=== PATIENT | female | born 1955 | race Caucasian/White ===

== ENCOUNTER 2018-08-01 02:01 | Emergency (ER) | payer BC ==
[2018-08-01] MEDS ORDERED: Sodium Chloride 0.45% 1,000 ML IV ONE (02:34)
[2018-08-01 02:43] LABS: % BASOPHILS 0.3 % (0.0-2.0); % EOSINOPHILS 0.9 % (0.0-5.0); % LYMPHOCYTES 13.8 % (20.0-50.0); % MONOCYTES 5.9 % (2.0-10.0); % NEUTROPHILS 79.1 % (40.0-80.0); EOSINOPHILE ABSOLUTE 0.1 Th/cmm (0.1-0.4); HEMATOCRIT 41.5 % (41.0-60); HEMOGLOBIN 13.5 gm/dL (12-16); LYMPHOCYTE ABSOLUTE 1.3 Th/cmm (1.5-3.0); MEAN CELL VOLUME 89.3 fl (81-100); MEAN CORPUSCULAR HEMOGLOBIN 29.1 pg (27.0-31.0); MEAN CORPUSCULAR HGB CONC 32.6 pg (28.0-36.0); MEAN PLATELET VOLUME 8.5 fl; MONOCYTE ABSOLUTE 0.6 Th/cmm (0.3-1.0); NEUTROPHILE ABSOLUTE 7.5 Th/cmm (1.8-8.0); PLATELET COUNT 274 Th/cmm (150-400); RED BLOOD COUNT 4.65 Mil/cmm (3.80-5.10); RED CELL DISTRIBUTION WIDTH 12.2 % (11.5-20.0); WHITE BLOOD COUNT 9.5 Th/cmm (4.8-10.8)
[2018-08-01 02:58] LABS: INR 0.88 (0.5-1.4); PROTHROMBIN TIME (TEST) 9.3 SECONDS (9.5-11.5)
[2018-08-01 03:00] LABS: URINE SOURCE CLEAN C
[2018-08-01 03:03] LABS: URINE BILIRUBIN NEGATIVE (NEGATIVE); URINE BLOOD TRACE (NEGATIVE); URINE GLUCOSE (UA) NEGATIVE (NEGATIVE); URINE KETONE NEGATIVE (NEGATIVE); URINE LEUKOCYTE ESTERASE NEGATIVE (NEGATIVE); URINE MICROSCOPIC INDICATED? YES; URINE NITRATE NEGATIVE (NEGATIVE); URINE PROTEIN 30 mg/dL (NEGATIVE); URINE UROBILINOGEN 0.2 E.U./dL (0.2 - 1.0)
[2018-08-01 03:04] LABS: ALB/GLOB RATIO 1.4 (1.0-1.8); ALBUMIN 4.4 gm/dL (3.7-5.3); ALKALINE PHOSPHATASE 83 U/L (34-104); ANION GAP 11.9 (7.0-16.0); BILIRUBIN,TOTAL 0.6 mg/dL (0.3-1.0); BUN - UREA NITROGEN 7 mg/dL (7-25); CALCIUM SERUM 8.9 mg/dL (8.6-10.3); CARBON DIOXIDE 26.1 mEq/L (21.0-31.0); CHLORIDE 96 mEq/L (98-107); CREATININE - SERUM 0.7 mg/dL (0.6-1.2); GFR AFRICAN-AMERICAN > 60.0 ml/min (>90); GFR NON AFRICAN-AMERICAN > 60.0 ml/min; GLUCOSE 130 mg/dL (70-105); LIPASE 9 U/L (11-82); SGOT 16 U/L (13-39); SGPT/ALT 14 U/L (7-52); SODIUM SERUM 131 mEq/L (136-145); TOTAL PROTEIN,SERUM 7.5 gm/dL (6.0-8.3)
--- NOTE | 2018-08-01 03:06 | ED Physician Chart ---
ED Chief Complaint/HPI - Patient Information Date Seen:: 08/01/18 Time Seen:: 02:20 Chief Complaint:: right flank pain History of Present Illness:: this is a 63 yo female with the sudden onset of right sided abdominal pain associated with nausea and vomiting over the last few days. Allergies:: Allergies Allergy/AdvReac Type Severity Reaction Status Date / Time Iodine and Iodide Containing Allergy Verified 08/01/18 02:25 Produc Vitals:: Vital Signs - 8 hr 08/01/18 02:12 Temp 97.8 F HR 77 RR 16 BP 161/97 O2 Sat % 97 Historian:: Patient Review:: Nurse's Note Reviewed ED Review of Systems - Review of Systems General/Constitutional: No fever, No chills, No weight loss, No weakness, No diaphoresis, No edema, No loss of appetite Skin: No skin lesions, No rash, No bruising Head: No headache, No light-headedness Eyes: No loss of vision, No pain, No diplopia ENT: No earache, No nasal drainage, No sore throat, No tinnitus Neck: No neck pain, No swelling, No thyromegaly, No stiffness, No mass noted Cardio Vascular: No chest pain, No palpitations, No PND, No orthopnea, No edema Pulmonary: No SOB, No cough, No sputum, No wheezing GI: Nausea, Vomiting, No diarrhea, Pain, No melena, No hematochezia, No constipation, No hematemesis G/U: No dysuria, No frequency, No hematuria Musculoskeletal: No bone or joint pain, No back pain, No muscle pain Endocrine: No polyuria, No polydipsia Psychiatric: No prior psych history, No depression, No anxiety, No suicidal ideation Hematopoietic: No bruising, No lymphadenopathy Allergic/Immuno: No urticaria, No angioedema Neurological: No syncope, No focal symptoms, No weakness, No paresthesia, No headache, No seizure, No dizziness, No confusion, No vertigo ED Past Medical History - Past Medical History Obtainable: Yes Past Medical History: HTN, Dyslipidemia Family History: None Social History: Non Smoker, No Alcohol, No Drug Use Surgical History: Hysterectomy, other (tonsils, right ankle) Psychiatricy History: None Family Medical History - Family Member Mother History Unknown: Yes ED Physical Exam - Physical Examination General/Constitutional: Awake, Well-developed, well-nourished, Alert, No distress, GCS 15, Non-toxic appearing, Ambulatory Head: Atraumatic Eyes: Lids, conjuctiva normal, PERRL, EOMI Skin: Nl inspection, No rash, No skin lesions, No ecchymosis, Well hydrated, No lymphadenopathy ENMT: External ears, nose nl, Nasal exam nl, Lips, teeth, gums nl Neck: Nontender, Full ROM w/o pain, No JVD, No nuchal rigidity, No bruit, No mass, No stridor Respiratory: Nl effort/Exclusion, Clear to Auscultation, No Wheeze/Rhonchi/Rales Cardio Vascular: RRR, No murmur, gallop, rubs, NL S1 S2 GI: No tenderness/rebounding/guarding (right upper liver area and abdomenal tenderness ), No organomegaly, No hernia, Normal BS's, Nondistended, No mass/ bruits, No McBurney tenderness : No CVA tenderness Extremities: No tenderness or effusion, Full ROM, normal strength in all extremities, No edema, Normal digits & nails Neuro/Psych: Alert/oriented, DTR's symmetric, Normal sensory exam, Normal motor strength, Judgement/insight normal, Mood normal, Normal gait, No focal deficits Misc: Normal back, No paraspinal tenderness ED Labs/Radiology/EKG Results - Lab Results Results: Laboratory Tests 08/01/18 02:30 WBC 9.5 RBC 4.65 Hgb 13.5 Hct 41.5 MCV 89.3 MCH 29.1 MCHC Differential 32.6 RDW 12.2 Plt Count 274 MPV 8.5 Neutrophils % 79.1 Lymphocytes % 13.8 L Monocytes % 5.9 Eosinophils % 0.9 Basophils % 0.3 - Radiology Results Results: ct scan = liver disease and renal stone ED Assessment - Assessment General Assessment: hepatic disease renal stone ED Septic Shock - . Is Septic Shock (SBP<90, OR Lactate>4 mmol\L) present?: No - <6hrs of presentation: Vital Signs: Vital Signs - 8 hr 08/01/18 02:12 Temp 97.8 F HR 77 RR 16 BP 161/97 O2 Sat % 97 ED Reassessment (Disposition) - Reassessment Reassessment Condition:: Improved - Diagnosis Diagnosis:: hepatic lesion renal stone - Aftercare/Follow up Instructions Aftercare/Follow-Up Instructions:: Counseled pt regarding lab results/diagnosis & need follow up, Refer to Discharge Instructions, Counseled pt & family regarding lab results/diagnosis & need follow up Notes:: she will go to her pmd with a copy of her labs on thursday. she was told to get [facility] if the pain returns or get worse mayr. Medication Prescribed:: [id number]-jeffery., gabapentin - Patient Disposition Discharge/Transfer:: Home Condition at Disposition:: Improved
[2018-08-01] MEDS ORDERED: Potassium Chloride Elixir 20 mEq /15 mL UDC PO ONE (03:08)
[2018-08-01 03:13] LABS: URINE CLARITY HAZY (CLEAR); URINE COLOR YELLOW
[2018-08-01] MEDS ORDERED: Potassium Chloride Elixir 20 mEq /15 mL UDC ONE (03:13)
[2018-08-01 03:14] LABS: URINE AMORPHOUS SEDIMENT MODERATE URATES (NONE SEEN); URINE BACTERIA MANY /hpf (NONE SEEN); URINE EPITHELIAL CELLS MODERATE /lpf (FEW); URINE RBC NONE SEEN /hpf (0-5)
--- NOTE | 2018-08-01 09:11 | Diagnostic Imaging Report ---
Exam: CT examination of the abdomen pelvis HISTORY: Right abdominal pain Total DLP equals 546 CTDI equals 11.4 Findings: Multiple contiguous thin section of the abdomen pelvis obtained from lower thorax to pubic symphysis without the administration of oral or intravenous contrast material, no prior studies available comparison. The study demonstrates mild right basal peribronchial infiltrate and pleural thickening. The liver parenchyma contains a large right lobe somewhat complex cyst measuring 7.3 cm diameter. The spleen is intact. The kidneys demonstrate no evidence for obstructive uropathy. A 1 cm calculus nonobstructing is noted in the right kidney. A 2 cm calculus nonobstructing is noted in the left kidney. There is evidence for nonobstructing 1 mm calcification proximal left ureter. Mild calcification of abdominal aorta appreciated. There is evidence of prior hysterectomy. There is no evidence of diverticular disease of diverticulitis. The urinary bladder is intact. Bony structures demonstrate no evidence for blastic or lytic structures. IMPRESSION: Bilateral nonobstructing renal calculi Left proximal ureter 2 mm calculus. Somewhat complex cystic lesion in the right hepatic lobe measuring 7.3 cm diameter. Ultrasound examination of the area in question might be helpful.
[2018-08-01 16:26] LABS: AMPHETAMINE URINE NEGATIVE (NEGATIVE); BARBITURATES URINE NEGATIVE (NEGATIVE); BENZODIAZEPINES QUAL URINE NEGATIVE (NEGATIVE); CANNABINOID THC NEGATIVE (NEGATIVE); COCAINE METABOLITE QUAL URINE NEGATIVE (NEGATIVE); METHADONE URINE NEGATIVE (NEGATIVE); METHAMPHETAMINES QUAL URINE NEGATIVE (NEGATIVE); OPIATES (MORPHINE) QUAL. URINE POSITIVE (NEGATIVE); PHENCYCLIDINE (PCP) URINE NEGATIVE (NEGATIVE); TRICYCLICS (TCA) QUAL. URINE NEGATIVE (NEGATIVE)
== END 2018-08-01 05:34 | disposition home or self-care (01) ==
LOC: ER 02:01
DX: N20.0 Calculus of kidney (principal); K76.9 Liver disease, unspecified; I10 Essential (primary) hypertension; E78.5 Hyperlipidemia, unspecified; Z90.710 Acquired absence of both cervix and uterus; Z91.041 Radiographic dye allergy status
CPT/HCPCS: 99284; 96374; 96375; 74176; 84484; 36415; 82150; 80307; 85025; 85610; 87086; 81001; 83690; 80053; 87040 ×2; J1885; J2405; J7030; Z7502